=== PATIENT | male | born 1970 | race African-American/Black ===

== ENCOUNTER 2022-03-18 04:47 | Emergency (ER) | payer MEDICAID ==
[~2022-03-18] VITALS: Ht 180.3 cm; Wt 109.0 kg
[2022-03-18 05:06] VITALS: BP 126/75
[2022-03-18] MEDS ORDERED: ACETAMINOPHEN 325MG TABLET PO ONE (06:15)
[2022-03-18] MEDS ORDERED: IBUP-2030 PO (07:43)
== END 2022-03-18 08:55 | disposition home or self-care (01) ==
LOC: ER 04:47
DX: K08.89 Other specified disorders of teeth and supporting structures (principal); F20.9 Schizophrenia, unspecified
CPT/HCPCS: 99282